=== PATIENT | male | born 1935 | race Caucasian/White ===

== ENCOUNTER 2020-02-17 10:40 | Emergency (ER) | payer MEDICARE ==
--- NOTE | 2020-02-17 10:45 | EDM.PDOC ---
ED HPI GENERAL MEDICAL PROBLEM - General Chief Complaint: Lower Extremity Injury/Pain Stated Complaint: Right Hip Pain Time Seen by Provider: 02/17/20 10:40 Source of Information: Reports: Patient, [facility] (Extremely limited previous telephone report/history obtained from the jail prior to transfer), Old Records History Limitations: Reports: Altered Mental Status - History of Present Illness INITIAL COMMENTS - FREE TEXT/NARRATIVE: The patient was brought to the jail via transport vehicle from [facility] with only limited previous history obtained from the jail prior to patient's arrival to this facility, although no apparent history of head injury today. Patient is an extremely poor historian secondary to his baseline mental status, aphasia, etc.. He apparently had an unwitnessed- ? fall earlier this morning and has been unable to bear weight since that time secondary to right hip pain? No known history of head injury, loss of consciousness, change in mental status, neurological deficits, or other complaints or injuries, including neck/back pain, etc.. He does have a minor abrasion on his right elbow, which was stressed prior to arrival. Onset: Today, Unknown/Unsure Onset Date: 02/17/20 Duration: Constant Location: Reports: Lower Extremity, Right. Denies: Head, Face, Neck, Chest, Abdomen, Back, Pelvis, Upper Extremity, Left, Upper Extremity, Right, Radiates to Quality: Reports: Same as Previous Episode Improves with: Reports: Rest Worsens with: Reports: Movement Context: Reports: Trauma (As above) Associated Symptoms: Reports: Confusion (Stable baseline) Treatments GENERAL OFFICE DISPATCHER: Reports: Dressing(s) (As above) - Related Data Allergies Allergy/AdvReac Type Severity Reaction Status Date / Time No Known Allergies Allergy Verified 02/17/20 10:46 Home Meds: Home Meds Acetaminophen 325 mg PO Q4HR PRN 02/17/20 [History] Ammonium Lactate [Amlactin 12% Lotion] 1 applic TOP BID PRN 02/17/20 [History] Mag Hydrox/Al Hydrox/Simeth [Antacid Plus Anti-Gas] 20 ml PO Q4HR PRN 02/17/20 [ History] Sennosides/Docusate Sodium [Senna-Docusate Sodium Tablet] 1 each PO BID PRN 05/02 [History] amLODIPine Besylate [Amlodipine Besylate] 10 mg PO DAILY 02/17/20 [History] polyethylene glycoL 3350 [MiraLAX] 17 gm PO DAILY 02/17/20 [History] Past Medical History HEENT History: Reports: Other (See Below) Other HEENT History: Arcus senilis Cardiovascular History: Reports: CAD, Hypertension Gastrointestinal History: Reports: Chronic Constipation, GERD. Denies: Fecal Incontinence Genitourinary History: Reports: BPH, Retention, Urinary, Urinary Incontinence Musculoskeletal History: Reports: Osteoarthritis Neurological History: Reports: Alzheimers Disease, Other (See Below) Other Neuro History: Organic brain syndrome requiring Wander Guard. History of aphasia. Hematologic History: Reports: Other (See Below) Other Hematologic History: Thrombocytopenia Review of Systems - Review of Systems Review Of Systems: Unable To Obtain Reason Not Obtained: Mental status/baseline confusion ED EXAM, GENERAL - Physical Exam Exam: See Below Exam Limited By: No Limitations General Appearance: Alert, WD/WN, No Apparent Distress, Cachetic (Mild) Eye Exam: Bilateral Eye: EOMI, Normal Fundi, Normal Inspection (No nystagmus. Moderate arcus senilis bilaterally), PERRL Ears: Normal External Exam, Normal Canal, Hearing Grossly Normal, Normal TMs Throat/Mouth: Normal Inspection, Normal Lips, Normal Teeth, Normal Gums, Normal Oropharynx, Normal Voice, No Airway Compromise. No: Dysphagia, Perioral Cyanosis Head: Atraumatic, Normocephalic, Other (Old by history 3 cm in diameter mild ecchymosis over the right frontal region. Multiple benign forehead and facial papillomas.). No: Facial Swelling, Facial Tenderness, Sinus Tenderness Neck: Supple, Non-Tender, Full Range of Motion, Carotid Bruit (Bilateral carotid bruitsmild), Other (4 cm right nuchal lipoma with additional 1.5 cm benign lateral neck papilloma ). No: Lymphadenopathy (L), Lymphadenopathy (R), Thyromegaly Respiratory/Chest: No Respiratory Distress, Lungs Clear, Normal Breath Sounds, No Accessory Muscle Use, Chest Non-Tender. No: Pleural Rub, Retractions Cardiovascular: Normal Peripheral Pulses, Regular Rate, Rhythm, No Edema, No Gallop, No JVD, No Murmur, No Rub, Tachycardia (Occasional mild borderline). No : Gallop/S3, Gallop/S4, Friction Rub Peripheral Pulses: 2+: Radial (L), Radial (R), Dorsalis Pedis (L), Dorsalis Pedis (R) GI/Abdominal: Normal Bowel Sounds, Soft, Non-Tender, No Organomegaly, No Distention, No Abnormal Bruit, No Mass, Pelvis Stable. No: Guarding (Male) Exam: Deferred Rectal (Males) Exam: Deferred Back Exam: Normal Inspection, Full Range of Motion. No: CVA Tenderness (L), CVA Tenderness (R), Muscle Spasm, Paraspinal Tenderness, Vertebral Tenderness Extremities: No Pedal Edema, Normal Capillary Refill, Leg Pain (Right hip with movement), Limited Range of Motion. No: Pedal Edema, Clarissa's Sign Neurological: Alert, Confused (Stable baseline?) Psychiatric: Normal Affect, Normal Mood Skin Exam: Warm, Dry, Normal Color, No Rash, Wound/Incision (Right elbow with dressing in place), Other (Otherwise lipomas and papillomas as above.). No: Diaphoretic, Ecchymosis Lymphatic: No Adenopathy Course - Vital Signs Last Recorded V/S: Last Vital Signs Temp 36.1 C 02/17/20 10:40 Pulse 94 02/17/20 14:16 Resp 20 02/17/20 14:16 BP 104/75 02/17/20 14:16 Pulse Ox 97 02/17/20 14:16 Vital Signs - 24 hr 02/17/20 02/17/20 02/17/20 10:40 11:39 12:10 Temperature [ 36.1 C Temporal] Pulse, 104 H 103 H 101 H Peripheral [ Pulse Oximetry] Respiratory 20 22 H 26 H Rate Blood Pressure 129/69 155/80 H 146/76 H [Left Upper Arm ] O2 Sat by Pulse 97 95 93 L Oximetry 02/17/20 02/17/20 12:40 14:16 Temperature [ Temporal] Pulse, 97 94 Peripheral [ Pulse Oximetry] Respiratory 19 20 Rate Blood Pressure 154/70 H 104/75 [Left Upper Arm ] O2 Sat by Pulse 96 97 Oximetry - Orders/Labs/Meds Orders: Active Orders 24 hr Category Date Time Status Cardiac Monitoring [RC] . DIRECTED Care 02/17/20 11:35 Active Hip Min 2V or 3V w Pelvis Rt [CR] Stat Exams 02/17/20 10:46 Taken Obtain Past Medical Record [OM.PC] Routine Oth 04/06/20 10:45 Active Labs: None Meds: None - Radiology Interpretation Free Text/Narrative:: court recording monitor shows normal sinus rhythm with heart rate in the 90s to low 100s with no ectopy or arrhythmia. X-rays of the pelvis, one view, and lateral view of the right hip indicates a probable nondisplaced, non-angulated hairline subcapital fracture with moderate bilateral coxarthrosis. Subsequent telephone consultation at 11:23 hours with the radiology department at [facility] in [place] with confirmation of my above findings. CT Results Date: 02/17/20 CT Results Time: 11:23 Departure - Departure Time of Disposition: 14:40 Disposition: DC/Tfer to Acute Hospital 02 Condition: Fair Clinical Impression: Need for comfort care, Peptic reflux disease Hypertension Qualifiers: Hypertension type: essential hypertension Qualified Code(s): I10 - Essential ( primary) hypertension Osteoarthritis Qualifiers: Osteoarthritis location: multiple joints Osteoarthritis type: primary Qualified Code(s): M89.49 - Other hypertrophic osteoarthropathy, multiple sites Coronary artery disease Qualifiers: Coronary Disease-Associated Artery/Lesion type: [place]las artery [place] vs. transplanted heart: d[place]las heart Associated angina: without angina Qualified Code(s): I25.10 - Atherosclerotic heart disease of [place] coronary artery without angina pectoris Closed right hip fracture Qualifiers: Encounter type: initial encounter Qualified Code(s): S72.001A - Fracture of unspecified part of neck of right femur, initial encounter for closed fracture - Discharge Information *PRESCRIPTION DRUG MONITORING PROGRAM REVIEWED*: Not Applicable *COPY OF PRESCRIPTION DRUG MONITORING REPORT IN PATIENT ROHAN: Not Applicable Referrals: Ladarius Valentino MD [Primary Care Provider] - Forms: ED Department Discharge, Interfacility Transfer [facility] Sepsis Event Note - Focused Exam Vital Signs: Vital Signs Temp Pulse Resp BP Pulse Ox 02/17/20 14:16 94 20 104/75 97 02/17/20 12:40 97 19 154/70 H 96 02/17/20 12:10 101 H 26 H 146/76 H 93 L 02/17/20 11:39 103 H 22 H 155/80 H 95 02/17/20 10:40 36.1 C 104 H 20 129/69 97 Date Exam was Performed: 02/17/20 Time Exam was Performed: 14:42 - Problem List & Annotations (1) Closed right hip fracture SNOMED Code(s): 851774890 Code(s): S72.001A - FRACTURE OF UNSP PART OF NECK OF RIGHT FEMUR, INIT Status: Acute Priority: High Current Visit: Yes Onset Date: 02/17/20 Annotation/Comment:: Telephone consultation at 11:25 AM with the patient's nephew/POA, David, who is in agreement to transfer of the patient to [facility] for orthopedic consultation and treatment. He is aware that the patient's NO CODE STATUS will to be lifted for the surgery. Cardiac monitoring initiated prior to patient's transfer. Initial telephone consultation with [facility] at 11:30 a.m. with subsequent telephone consultation at 1:[address] Velasquez, orthopedic surgeon, who does agree to accept the patient for further treatment and evaluation through the hospitalist service, with no further treatment recommendations given. Scoring telephone consultation at 12:[address] Morrow, hospitalist, who does accept the patient for treatment as above, Ambulance transfer with ssis ssrs developer accompaniment. Note delay of ambulance transfer secondary to lack of ambulance availability with no sequelae. Qualifiers: Encounter type: initial encounter Qualified Code(s): S72.001A - Fracture of unspecified part of neck of right femur, initial encounter for closed fracture (2) Coronary artery disease SNOMED Code(s): 59105823 Code(s): I25.10 - ATHSCL HEART DISEASE OF [place] CORONARY ARTERY W/O ANG PCTRS Status: Chronic Priority: Medium Current Visit: Yes Annotation/ Comment:: Stable based on limited history Qualifiers: Coronary Disease-Associated Artery/Lesion type: douglas artery [place] vs. transplanted heart: douglas heart Associated angina: without angina Qualified Code(s): I25.10 - Atherosclerotic heart disease of [place] coronary artery without angina pectoris (3) Hypertension SNOMED Code(s): 07636549 Code(s): I10 - ESSENTIAL (PRIMARY) HYPERTENSION Status: Chronic Priority : Medium Current Visit: Yes Annotation/Comment:: Stable in the emergency room. Qualifiers: Hypertension type: essential hypertension Qualified Code(s): I10 - Essential (primary) hypertension (4) Need for comfort care SNOMED Code(s): 557554780, 523315683 Code(s): JUH1595 - Status: Chronic Priority: High Current Visit: Yes Annotation/Comment:: NO CODE STATUS confirmed by jail records. (5) Osteoarthritis SNOMED Code(s): 895449913 Code(s): M19.90 - UNSPECIFIED OSTEOARTHRITIS, UNSPECIFIED SITE Status: Chronic Priority: Medium Current Visit: Yes Annotation/Comment:: Otherwise stable by history. Qualifiers: Osteoarthritis location: multiple joints Osteoarthritis type: primary Qualified Code(s): M89.49 - Other hypertrophic osteoarthropathy, multiple sites (6) Peptic reflux disease SNOMED Code(s): 948859826 Code(s): K21.9 - GASTRO-ESOPHAGEAL REFLUX DISEASE WITHOUT ESOPHAGITIS Status: Chronic Priority: Medium Current Visit: Yes Annotation/Comment:: Stable with no current medical therapy. Note history of chronic constipation. - Problem List Review Problem List Initiated/Reviewed/Updated: Yes - My Orders Last 24 Hours: My Active Orders 02/17/20 10:45 Obtain Past Medical Record [OM.PC] Routine 02/17/20 10:46 Hip Min 2V or 3V w Pelvis Rt [CR] Stat 02/17/20 11:35 Cardiac Monitoring [RC] . DIRECTED - Assessment/Plan Last 24 Hours: My Active Orders 02/17/20 10:45 Obtain Past Medical Record [OM.PC] Routine 02/17/20 10:46 Hip Min 2V or 3V w Pelvis Rt [CR] Stat 02/17/20 11:35 Cardiac Monitoring [RC] . DIRECTED Assessment:: As above. Plan: As above. Extensive precautions were given to the patient and jail staff , who are in agreement with the treatment plan. See Patient Instructions for further treatment and plan.
[2020-02-17 14:17] VITALS: BP 104/75; PULSE 94
== END 2020-02-17 14:40 ==
LOC: LL.ED 10:40
DX: S72.011A Unspecified intracapsular fracture of right femur, initial encounter for closed fracture (principal); I25.10 Atherosclerotic heart disease of native coronary artery without angina pectoris; M89.49 Other hypertrophic osteoarthropathy, multiple sites; I10 Essential (primary) hypertension; K27.9 Peptic ulcer, site unspecified, unspecified as acute or chronic, without hemorrhage or perforation; Z79.899 Other long term (current) drug therapy; G30.9 Alzheimer's disease, unspecified; F02.80 Dementia in other diseases classified elsewhere, unspecified severity, without behavioral disturbance, psychotic disturbance, mood disturbance, and anxiety; W19.XXXA Unspecified fall, initial encounter
CPT/HCPCS: 99285-25